=== PATIENT | male | born 1945 | race Caucasian/White ===

== ENCOUNTER 2019-10-07 07:41 | Day surgery (SDC) | payer MEDICARE, BC, SELFPAY ==
[2019-10-07 07:56] VITALS: BP 120/68; PULSE 56; RESP 17; TEMP 36.3; O2SAT 95
[2019-10-07] MEDS: Tetracaine 0.5% 4 ML BTL OS (09:12)
[2019-10-07] MEDS: Balanced Salt Soln.-PLUS 500 ML BAG (09:23)
[2019-10-07] MEDS: Lidocaine 1% Pres-Free 5 ML VIAL (09:25)
[2019-10-07] MEDS: Lidocaine 2% Jelly 6 ML SYR (09:25)
[2019-10-07] MEDS: Moxifloxacin-PF 1 MG/ML VIAL (09:26)
[2019-10-07] MEDS: Trypan Blue 0.06% 0.5 ML SYR (09:31)
--- NOTE | 2019-10-07 09:53 | W.PM.DSUDISC ---
Discharge Plan Disposition Patient Disposition: HOME Condition: Good Discharge Details Reason For Visit: CATARACT OS Attending Provider: Simone Willett Primary Care Provider: Simone Foster Home Meds and New Rx's Prescriptions: No Action multivitamin Tablet 1 tab PO DAILY RF: 0 vitamin E 1,000 unit Capsule See Rx Instructions .ROUTE .COMPLEX RF: 0 ascorbic acid (vitamin C) 1,000 mg Tablet 1,000 mg PO DAILY RF: 0 magnesium 250 mg Tablet See Rx Instructions .ROUTE .COMPLEX RF: 0 cholecalciferol (vitamin D3) [Vitamin D3] 25 mcg (1,000 unit) Tablet 25 mcg PO DAILY RF: 0 hydrochlorothiazide 12.5 mg tablet 12.5 mg PO DAILY RF: 0 potassium gluconate 595 mg (99 mg) Tablet See Rx Instructions .ROUTE .COMPLEX RF: 0 Discharge Instructions Stand Alone Forms: Post-op Topical Cataract, Ivanna Romo (DSU) Discharge Orders Discharge Orders: Discharge Order (Routine); Ordered 10/07/19 Ordered By: Simone Willett DS: Diagnosis Discharge Diagnosis (1) Posterior subcapsular age-related cataract of left eye: Status: Resolved (2) Nuclear sclerotic cataract of left eye: Status: Resolved (3) Cortical cataract of left eye: Status: Resolved
--- NOTE | 2019-10-07 09:54 | ROE_ITS ---
Date of service: 10/07/19 Time of Service: 09:54 Operative Note Operative Note DATE OF PROCEDURE: 10/07/19 PRE-OP DIAGNOSIS: Dense nuclear/cortical/posterior subcapsular cataract, left eye POST-OP DIAGNOSIS: same PROCEDURE: Cataract extraction using phacoemulsification with intraocular lens implant, left eye, using capsular staining with Vision Blue SURGEON: Simone Willett ANESTHESIA: MAC (with local sub-tenon's anesthetic injection) COMPLICATIONS: None Patient was transported to: same day Patient's condition: stable Implants: Eric [employer] Eric / [employer] Tecnis [id number] Indications: Progressive decreased vision due to cataract, left eye, with poor red reflex Procedure Description: CATARACT SURGERY OPERATIVE REPORT PREOPERATIVE DIAGNOSIS: 1. Dense nuclear/cortical/posterior subcapsular cataract, left eye 2. Poor red reflex secondary to #1 POSTOPERATIVE DIAGNOSIS: Same OPERATION: 1. Cataract extraction using phacoemulsification with posterior chamber intraocular lens implant, left eye. 2. Capsular staining with Vision Blue IOL: IOL [employer]ist/Model: Eric & Eric / MARINA Tecnis [id number] IOL Power: + 19.50 diopters IOL Serial Number: [id number] Optic Diameter: 6.0 mm Haptic/Overall Diameter: 13.0 mm PHACO INFO: Benji Centurion Vision System with OZil and Active Fluidics Cumulative Dispersed Energy (CDE): 20.18 seconds SURGEON: Simone Willett MD, LIZZETTE ANESTHESIA: Monitored [facility] Care (MAC), with local sub-tenon's anesthetic infiltration COMPLICATIONS: None SPECIMENS: None INDICATIONS FOR PROCEDURE: The patient is a 74-year-old gentleman with history of diminished visual acuity in his left eye. He is noted to have a dense nuclear/cortical/posterior subcapsular cataract in the left eye. The option of cataract surgery was offered to the patient and he wished to proceed. PROCEDURE: The correct surgical eye was identified and marked as the left eye and the pupil was dilated in the preoperative area using mydriatics and cycloplegics. The dilated pupil size was 7.0 mm. Oral sedation was administered in the form of an Imprimis MKO Melt (midazolam 3mg/ketamine 25mg/ondansetron 2mg). The patient was brought to the operating room where cardiopulmonary monitoring was instituted and surgical time-out was performed, confirming the correct operative eye and IOL power. Topical anesthesia was administered and ophthalmic povidone-iodine 5% was instilled into the conjunctival fornices. Lidocaine gel was applied to the cornea and the brian-ocular area was prepped with Betadine 10% solution and draped in the usual sterile fashion for intraocular surgery, including an aperture drape. A Tegaderm transparent film dressing was cut in half and used to cover the lashes and lid margins. Care was taken to sequester the lashes and lid margins under the Tegaderm dressing. A lid speculum was placed between the lids of the operative eye and the Maritza-Charlotte operating microscope was maneuvered into position. Kenia scissors were then used to make a conjunctival buttonhole approximately 6mm posterior to the limbus in the inferonasal quadrant. Blunt dissection was carried out to expose bare sclera, and a blunt-tipped sub-tenon?s anesthesia cannula was introduced and passed posteriorly along the globe where non- preserved plain lidocaine was injected into posterior sub-Tenon?s space. A sideport knife was used to make a paracentesis port superiorly/superiortemporally. Intraocular phenylephrine/lidocaine was injected int the anterior chamber.. Air was then injected into the anterior chamber, followed by Vision Blue, which was painted over the anterior capsule and then irrigated out using BSS. The anterior chamber was filled with Healon EndoCoat. A 2.4mm keratome knife was used to create a half-thickness groove at the limbus and then to construct a three-plane near-clear corneal tunnel extending 2.0mm into clear cornea at the 3:00 position. A flap was raised on the anterior capsule and capsulorhexis forceps were used to complete a continuous curvilinear capsulorhexis of 5.0 mm. Anterior chamber was noted to be very deep with thin capsule. Balanced salt solution was then used to perform cortical cleaving hydrodissection and nuclear hydrodelineation until the lens could be freely rotated within the capsular bag. The lens nucleus was then disassembled and removed within the capsular bag and iris plane using phacoemulsification. Residual cortical material was removed using the 45-degree angled silicone I/A tip with 0.3mm port. The posterior capsule was carefully polished to remove as much residual lens epithelial cells as safely possible. The capsular bag was then inflated and the anterior chamber deepened with Healon Pro viscoelastic. The lens implant described above was inserted into the capsular bag using the MARINA Jasper Injector. A Kuglen hook was used to dial the IOL into position. Residual viscoelastic was then removed first from posterior to the IOL, then from the anterior chamber using the I/A handpiece. The lens implant was noted to center nicely within the capsular bag. The incisions were stromally hydrated, and the anterior chamber was reformed using BSS. Then 0.5cc of moxifloxacin 1.0mg/ml were injected into the capsular bag and anterior chamber. The incisions were checked with a Weck spear and found to be secure. Several drops of ophthalmic povidone-iodine 5% were then applied to the eye followed by two drops of Imprimis combination prednisolone/moxifloxacin/nepafenac solution. The drapes were removed and a clear plastic protective eye shield was placed over the eye. The patient was then returned to Same Day Surgery in stable condition.
[2019-10-07 10:22] VITALS: BP 111/61; PULSE 57; RESP 16; TEMP 36.2; O2SAT 94
== END 2019-10-07 10:34 | disposition home or self-care (01) ==
PROVIDERS: PCP Family Medicine; Visit Provider Ophthalmology
PROC: (CPT 66982; principal; 2019-10-07 09:30)
DX: H25.12 Age-related nuclear cataract, left eye (principal); H25.012 Cortical age-related cataract, left eye; H25.042 Posterior subcapsular polar age-related cataract, left eye; H35.89 Other specified retinal disorders; I10 Essential (primary) hypertension
CPT/HCPCS: 66982; V2632

== ENCOUNTER 2019-10-21 07:02 | Day surgery (SDC) | payer MEDICARE, BC, SELFPAY ==
[2019-10-21 07:00] VITALS: BP 116/69; PULSE 55; RESP 18; TEMP 35.8; O2SAT 97
[2019-10-21] MEDS: Tetracaine 0.5% 4 ML BTL OD (08:26)
[2019-10-21] MEDS: Lidocaine 2% Jelly 6 ML SYR (08:27)
[2019-10-21] MEDS: Lidocaine 1% Pres-Free 5 ML VIAL (08:33)
[2019-10-21] MEDS: Balanced Salt Soln.-PLUS 500 ML BAG (08:34)
[2019-10-21] MEDS: Moxifloxacin-PF 1 MG/ML VIAL (08:36)
--- NOTE | 2019-10-21 08:58 | W.PM.DSUDISC ---
Discharge Plan Disposition Patient Disposition: HOME Condition: Good Discharge Details Reason For Visit: CATARACT OD Attending Provider: Simone Willett Primary Care Provider: Simone Foster Home Meds and New Rx's Prescriptions: No Action multivitamin Tablet 1 tab PO DAILY RF: 0 vitamin E 1,000 unit Capsule See Rx Instructions .ROUTE .COMPLEX RF: 0 ascorbic acid (vitamin C) 1,000 mg Tablet 1,000 mg PO DAILY RF: 0 magnesium 250 mg Tablet See Rx Instructions .ROUTE .COMPLEX RF: 0 cholecalciferol (vitamin D3) [Vitamin D3] 25 mcg (1,000 unit) Tablet 25 mcg PO DAILY RF: 0 hydrochlorothiazide 12.5 mg tablet 12.5 mg PO DAILY RF: 0 potassium gluconate 595 mg (99 mg) Tablet See Rx Instructions .ROUTE .COMPLEX RF: 0 Discharge Instructions Stand Alone Forms: Post-op Topical Cataract, Ivanna Romo (DSU) Discharge Orders Discharge Orders: Discharge Order (Routine); Ordered 10/21/19 Ordered By: Simone Willett DS: Diagnosis Discharge Diagnosis (1) Cortical cataract of right eye: Status: Resolved (2) Nuclear sclerotic cataract of right eye: Status: Resolved (3) Posterior subcapsular age-related cataract, right eye: Status: Resolved
--- NOTE | 2019-10-21 09:00 | W.PM.OP ---
Date of service: 10/21/19 Time of Service: 09:00 Operative Note Operative Note DATE OF PROCEDURE: 10/21/19 PRE-OP DIAGNOSIS: Nuclear/cortical/posterior subcapsular cataract, right eye POST-OP DIAGNOSIS: same PROCEDURE: Cataract extraction using phacoemulsification with intraocular lens implant, right eye SURGEON: Simone Willett ANESTHESIA: MAC and local (sub-tenon's anesthetic infiltration) ESTIMATED BLOOD LOSS: 0 PATHOLOGY: none sent COMPLICATIONS: None Patient was transported to: same day Patient's condition: stable Implants: Eirc and Eric Vision / [employer] Tecnis [id number] intraocular lens Indications: Progressive decreased vision due to cataract, right eye Procedure Description: CATARACT SURGERY OPERATIVE REPORT PREOPERATIVE DIAGNOSIS: Nuclear/cortical/posterior subcapsular cataract, right eye POSTOPERATIVE DIAGNOSIS: Same OPERATION: Cataract extraction using phacoemulsification with posterior chamber intraocular lens implant, right eye. IOL: IOL [employer] Manager/Model: J&J Vision / MARINA Tecnis ZCB00 IOL Power: + 19.50 diopters IOL Serial Number: [id number] Optic Diameter: 6.0mm Haptic/Overall Diameter: 13.0mm PHACO INFO: Benji Reveeurion Vision System with OZil and Active Fluidics Cumulative Dispersed Energy (CDE): 10.87 seconds SURGEON: Simone Willett MD, LIZZETTE ANESTHESIA: Monitored Anesthesia Care (MAC), with local sub-tenon's anesthetic infiltration COMPLICATIONS: None SPECIMENS: None INDICATIONS FOR PROCEDURE: The patient is a 74-year-old gentleman with history of diminished visual acuity in both eyes secondary to the development of bilateral nuclear cortical and posterior subcapsular cataract. He has already undergone cataract surgery in the left eye and is doing well postoperatively. He now presents for cataract surgery in the right eye. PROCEDURE: The correct surgical eye was identified and marked as the right eye and the pupil was dilated in the preoperative area using mydriatics and cycloplegics. The dilated pupil size was 7.0 mm. Oral sedation was administered in the form of an Imprimis MKO Melt (midazolam 3mg/ketamine 25mg/ondansetron 2mg). The patient was brought to the operating room where cardiopulmonary monitoring was instituted and surgical time-out was performed, confirming the correct operative eye and IOL power. Topical anesthesia was administered and ophthalmic povidone-iodine 5% was instilled into the conjunctival fornices. Lidocaine gel was applied to the cornea and the brian-ocular area was prepped with Betadine 10% solution and draped in the usual sterile fashion for intraocular surgery, including an aperture drape. A Tegaderm transparent film dressing was cut in half and used to cover the lashes and lid margins. Care was taken to sequester the lashes and lid margins under the Tegaderm dressing. A lid speculum was placed between the lids of the operative eye and the Maritza-Charlotte operating microscope was maneuvered into position. Kenia scissors were then used to make a conjunctival buttonhole approximately 6mm posterior to the limbus in the inferonasal quadrant. Blunt dissection was carried out to expose bare sclera, and a blunt-tipped sub-tenon?s anesthesia cannula was introduced and passed posteriorly along the globe where non-preserved plain lidocaine was injected into posterior sub-Tenon?s space. A sideport knife was used to make a paracentesis port inferiortemporally. Intraocular phenylephrine/lidocaine was injected into the anterior chamber. The anterior chamber was then filled with Healon Pro. A 2.4mm keratome knife was used to create a half-thickness groove at the limbus and then to construct a three-plane near-clear corneal tunnel extending 2.0mm into clear cornea in the superiortemporal position. . A flap was raised on the anterior capsule and capsulorhexis forceps were used to complete a continuous curvilinear capsulorhexis of 5.0 mm. The anterior chamber was noted to be moderately deep. Balanced salt solution was then used to perform cortical cleaving hydrodissection and nuclear hydrodelineation until the lens could be freely rotated within the capsular bag. The lens nucleus was then disassembled and removed within the capsular bag and iris plane using phacoemulsification. Residual cortical material was removed using the I/A handpiece. The posterior capsule was carefully polished to remove as much residual lens epithelial cells as safely possible. The capsular bag was then inflated and the anterior chamber deepened with viscoelastic. The lens implant described above was inserted into the capsular bag using the MARINA Winsted Injector. A Kuglen hook was used to dial the IOL into position. Residual viscoelastic was then removed first from posterior to the IOL, then from the anterior chamber using the I/A handpiece. The lens implant was noted to center nicely within the capsular bag. The incisions were stromally hydrated, and the anterior chamber was reformed using BSS. Then 0.5cc of moxifloxacin 1.0mg/ml were injected into the capsular bag and anterior chamber. The incisions were checked with a Weck spear and found to be secure. Several drops of ophthalmic povidone-iodine 5% were then applied to the eye followed by two drops of Imprimis combination prednisolone/moxifloxacin/nepafenac solution. The drapes were removed and a clear plastic protective eye shield was placed over the eye. The patient was then returned to Same Day Surgery in stable condition.
[2019-10-21 09:19] VITALS: BP 116/72; PULSE 78; RESP 16; TEMP 36.2; O2SAT 96
== END 2019-10-21 09:26 | disposition home or self-care (01) ==
PROVIDERS: PCP Family Medicine; Visit Provider Ophthalmology
PROC: (CPT 66984; principal; 2019-10-21 08:30)
DX: H25.011 Cortical age-related cataract, right eye (principal); H25.11 Age-related nuclear cataract, right eye; H25.041 Posterior subcapsular polar age-related cataract, right eye; Z96.1 Presence of intraocular lens; Z98.42 Cataract extraction status, left eye
CPT/HCPCS: 66984; V2632